=== PATIENT | male | born 1950 | race Caucasian/White ===

== ENCOUNTER → 2020-09-08 | Outpatient (CLI) | payer OTHER ==
--- NOTE | 2020-09-08 12:45 | 2DMMODE ---
[facility] [place] [address] 2 D/M-MODE ECHOCARDIOGRAM Name: ANNIKAVALERIE Rea Room #: REG NATALIA PeterGeneReaGene#: [id number] Admission: 09/08/20 Attend Phys: Jorden Dominguez Discharge: Date of : 48 Report #: [id number] THIS REPORT FOR: cc: JENNIFER BULLOCK FAMILY PHYSICIAN or PCP Jorden Dominguez MD ~ APPROVED REPORT Study performed: 09/08/2020 10:40:17 EXAM: Comprehensive 2D, Doppler, and color-flow Echocardiogram Patient Location: Out-Patient Room #: 2 Status: routine BSA: 2.70 HR: 64 bpm BP: 154/102 mmHg Rhythm: NSR Other Information Study Quality: Adequate Indications Abnormal ECG Diabetes Hypertension/HDD 2D Dimensions RVDd: 35.60 mm IVSd: 13.57 (7-11mm) LVOT Diam: 23.78 (18-24mm) LVDd: 47.79 mm PWd: 13.57 (7-11mm) Ascending Ao: 35.54 (22-36mm) LVDs: 34.51 (25-40mm) Aortic Root: 36.29 mm Volumes Left Atrial Volume (Systole) Single Plane 4CH: 55.27 mL Single Plane 2CH: 39.32 mL LA ESV Index: 18.00 mL/m2 Aortic Valve AoV Peak Efrem.: 1.46 m/s AO Peak Gr.: 8.49 mmHg LVOT Max P.21 mmHg LVOT Max V: 1.03 m/s [facility] [address] [place] [address] 2 D/M-MODE ECHOCARDIOGRAM Name: VALERIE ROBLERO Room #: REG CL Roni#: [id number] Admission: 09/08/20 Attend Phys: Jorden Oreilly Discharge: Date of : 48 Report #: [id number] ANALISA Vmax: 3.12 cm2 Mitral Valve E/A Ratio: 0.7 MV Decel. Time: 309.38 ms MV E Max Efrem.: 0.90 m/s MV A Efrem.: 1.38 m/s MV PHT: 89.72 ms IVRT: 166.09 ms Pulmonary Valve PV Peak Efrem.: 0.96 m/s PV Peak Gr.: 3.71 mmHg Pulmonary Vein P Vein S: 0.59 m/s P Vein A: 0.26 m/s P Vein D: 0.31 m/s P Vein A Dur.: 96.9 msec P Vein S/D Ratio: 1.90 Tricuspid Valve TR Peak Efrem.: 2.21 m/s TR Peak Gr.: 19.55 mmHg PA Pressure: 20.00 mmHg Left Ventricle The left ventricle is normal size. Mild concentric left ventricular hypertrophy. The left ventricular systolic function is normal. The left ventricular ejection fraction is within the normal range. LVEF is 55-60%. Grade I - abnormal relaxation pattern. Right Ventricle The right ventricle is normal size. The right ventricular systolic function is normal. Atria The left atrium size is normal. The right atrium size is normal. Aortic Valve The aortic valve is normal in structure. No aortic regurgitation is present. There is no aortic valvular stenosis. Mitral Valve The mitral valve is normal in structure. Trace mitral regurgitation. No evidence of mitral valve stenosis. Tricuspid Valve [facility] [place] [address] 2 D/M-MODE ECHOCARDIOGRAM Name: VALERIE ROBLERO Room #: [id number] Admission: 09/08/20 Attend Phys: Jorden Oreilly Discharge: Date of : 48 Report #: [id number] The tricuspid valve is normal in structure. There is trace tricuspid regurgitation. Estimated PAP 20 mmHg. Plus the right atrial pressure. There is no pulmonary hypertension. Pulmonic Valve The pulmonary valve is normal in structure. There is no pulmonic valvular regurgitation. Great Vessels The aortic root is normal in size. The inferior vena cava is not well visualized. Pericardium There is no pericardial effusion. <Conclusion> The left ventricle is normal size. LVEF is 55-60%. The aortic valve is normal in structure. The mitral valve is normal in structure. Trace mitral regurgitation. The tricuspid valve is normal in structure. There is trace tricuspid regurgitation. Estimated PAP 20 mmHg. Plus the right atrial pressure. There is no pulmonary hypertension. The pulmonary valve is normal in structure. There is no pericardial effusion. <ELECTRONICALLY SIGNED> By: Jorden Dominguez MD 09/08/20 [id number] [id number] Jorden Dominguez MD /INF
== END ==
LOC: NUC 10:29
PROVIDERS: ATTEND Internal Medicine
DX: R94.31 Abnormal electrocardiogram [ECG] [EKG] (principal); E78.5 Hyperlipidemia, unspecified; I10 Essential (primary) hypertension

== ENCOUNTER → 2021-07-07 | Outpatient (CLI) | payer OTHER | LOC: SJCVC 09:32 | PROVIDERS: ATTEND Internal Medicine | DX: I10 Essential (primary) hypertension (principal); E78.5 Hyperlipidemia, unspecified; E11.9 Type 2 diabetes mellitus without complications; G47.33 Obstructive sleep apnea (adult) (pediatric); Z79.84 Long term (current) use of oral hypoglycemic drugs; Z79.899 Other long term (current) drug therapy; Z87.891 Personal history of nicotine dependence ==